=== PATIENT | male | born 1990 | race African-American/Black ===

== ENCOUNTER 2024-05-01 20:32 | Emergency (ER) | payer SELFPAY ==
[2024-05-01 21:23] VITALS: BP 156/85; PULSE 100; RESP 16; TEMP 98.8; BMI 28.7
== END 2024-05-01 21:21 | disposition home or self-care (01) ==
LOC: FER 20:32
PROC: 0HQGXZZ Repair Left Hand Skin, External Approach (ICD-10-PCS; principal; 2024-05-01)
DX: S61.412A Laceration without foreign body of left hand, initial encounter (principal); W26.0XXA Contact with knife, initial encounter
CPT/HCPCS: 99283-25